=== PATIENT | female | born 1995 | race Two or more races ===

== ENCOUNTER 2018-06-29 10:52 | Emergency (ER) | payer MEDICAID ==
[~2018-06-29] VITALS: Ht 154.9 cm; Wt 69.5 kg
--- NOTE | 2018-06-29 11:12 | NUR ---
Pt ambulates to room from triage with steady gait and balance. NADN. No obvious defecits observed.
[2018-06-29 11:20] VITALS: BP 110/58
--- NOTE | 2018-06-29 11:20 | NUR ---
Pt states, " I am about to be 8 weeks . It's my first . Since I found out I have been getting these sharp cramping pains here (left lower abdomen and left inguinal area). I feel really nauseated." Pt states her last menstrual cycle was approximately at "the end of may". Pt states she has taken 3 home test, all showing . NADN. Pt denies vomitting, diarrhea, cp, sob. All safety measures in place. Call light within reach.
--- NOTE | 2018-06-29 12:05 | NUR ---
UA COLLECTED AND SENT TO LAB. PT TAKEN TO US
[2018-06-29 12:08] LABS: MEAN CORPUSCULAR HGB CONC 32.6 g/dL (32.4-35.8); MEAN CORPUSCULAR VOLUME 88.9 fL (80-100); MEAN PLATELET VOLUME 8.7 fL (7.4-10.4); PLATELET COUNT 262 x10^3/uL (130-400); RED BLOOD COUNT 4.36 x10^6/uL (3.82-5.3)
[2018-06-29 12:18] LABS: MICROSCOPIC NOT IND
[2018-06-29 12:21] LABS: CULTURE INDICATED? NO
[2018-06-29 12:36] LABS: MD YES
[2018-06-29 12:38] LABS: <PLATELET ESTIMATE> ADEQUATE; <PLT MORPHOLOGY> NORMAL PLT MORPH; <RBC MORPHOLOGY> NORMAL; BAND#(MANUAL) 0.08 x10^3/uL; BANDS%(MANUAL) 1 % (0-7); EOS#(MANUAL) 0.08 x10^3/uL (0.0-0.4); EOS% (MANUAL) 1 % (1-7); LYMPHS% (MANUAL) 18 % (22-44); MONOS#(MANUAL) 0.39 x10^3/uL (0.3-2.7); MONOS% (MANUAL) 5 % (2-9); SEG#(MANUAL) 5.85 x10^3/uL (1.8-6.8); SEGS% (MANUAL) 75 % (42-75)
--- NOTE | 2018-06-29 15:10 | NUR ---
Patient given discharge instructions and they have confirmed that they understand the instructions. Patient ambulatory with steady gait. Pt left with discharge paperwork and all personal belongings.
== END 2018-06-29 15:13 | disposition home or self-care (01) ==
LOC: ED 15:05
DX: O03.4 Incomplete spontaneous abortion without complication (principal); O36.4XX0 Maternal care for intrauterine death, not applicable or unspecified
CPT/HCPCS: 36415; 76830; 81003; 84702; 85025; 86901; 99284